=== PATIENT | male | born 1975 | race Asian ===

== ENCOUNTER 2023-11-07 07:44 | Outpatient (CLI) | payer BC, SELFPAY | END 2023-11-07 07:45 | disposition home or self-care (01) | PROVIDERS: PCP Physician Assistant Medical; Visit Provider Physician Assistant Medical | DX: Z13.29 Encounter for screening for other suspected endocrine disorder (principal); Z13.228 Encounter for screening for other metabolic disorders; Z13.220 Encounter for screening for lipoid disorders | CPT/HCPCS: 80053; 80061; 84443 ==

== ENCOUNTER 2023-12-23 10:18 | Outpatient (CLI) | payer BC, SELFPAY ==
--- NOTE | 2023-12-23 11:26 | W.ANESCHARGE ---
Anesthesia Charges Start Date/Time Anesthesia Start Date: 12/23/23 Anesthesia Start Time: 10:57 Stop Date/Time Anesthesia Stop Date: 12/23/23 Anesthesia Stop Time: 11:22
--- NOTE | 2023-12-23 11:37 | W.ANESCHARGE ---
Anesthesia Charges Start Date/Time Anesthesia Start Date: 12/23/23 Anesthesia Start Time: 10:57 Stop Date/Time Anesthesia Stop Date: 12/23/23 Anesthesia Stop Time: 11:22
== END 2023-12-23 10:19 | disposition home or self-care (01) ==
LOC: OP CLINIC 10:19
PROVIDERS: PCP Physician Assistant Medical; Visit Provider Internal Medicine
DX: Z12.11 Encounter for screening for malignant neoplasm of colon (principal); K62.1 Rectal polyp
CPT/HCPCS: 00811; 45380; 88305; J2704

== ENCOUNTER 2025-01-10 08:21 | Outpatient (CLI) | payer OTHER, SELFPAY | END 2025-01-10 08:22 | disposition home or self-care (01) | LOC: NFLDREF 01-20 18:35 | PROVIDERS: PCP Physician Assistant Medical; Referring Provider Physician Assistant Medical; Visit Provider Physician Assistant Medical | DX: Z00.01 Encounter for general adult medical examination with abnormal findings (principal); I10 Essential (primary) hypertension; Z13.29 Encounter for screening for other suspected endocrine disorder | CPT/HCPCS: 80053; 80061; 84443 ==